=== PATIENT | female | born 1960 ===

== ENCOUNTER 2017-02-01 17:35 | Inpatient (IN) ==
[2017-02-01] MEDS ORDERED: MEROPENEM 1,000 MG in SODIUM CHLORIDE 0.9% 100 ML IV STA (17:53)
[2017-02-01] MEDS ORDERED: SODIUM CHLORIDE 0.9% 1,000 ML IV STA (18:01)
[2017-02-01] MEDS ORDERED: SODIUM CHLORIDE 0.9% 3,550 ML IV ONE (18:27)
[2017-02-01] MEDS ORDERED: VANCOMYCIN INJ 1,750 MG in SODIUM CHLORIDE 0.9% 250 ML IV SCH (18:30)
[2017-02-01] MEDS ORDERED: INSULIN REGULAR DRIP 100 ML IV SCH (18:30)
[2017-02-01] MEDS ORDERED: PIPERACILLIN/TAZOBACTAM 3,375 MG in SODIUM CHLORIDE 0.9% 100 ML IV SCH (18:30)
[2017-02-01] MEDS ORDERED: MEROPENEM 1,000 MG VIAL IV ONE (18:31)
[2017-02-01 18:45] LABS: ABG Base Excess -5.5 MMOL/L (-2.5-2.5); ABG HCO3 19.9 MMOL/L (20-26); ABG Oxygen Saturation 97.1 % (95-100); ABG PCO2 23.8 MM HG (35-48); ABG PH 7.458 (7.35-7.45); ABG PO2 83.9 MM HG (80-95); ABG TCO2 14.9 MMOL/L (23-27); Allen Test Positive; Pt O2 Delivery Device Room Air
[2017-02-01] MEDS ORDERED: GLUCAGON 1 MG VIAL IM PRN ×2 (19:05→19:20)
[2017-02-01] MEDS ORDERED: DEXTROSE 50% 25 GM/50 ML VIAL IV PRN ×2 (19:05→19:20)
[2017-02-01 19:20] LABS: Lactic Acid 3.8 MMOL/L (0.4-2.0)
[2017-02-01] MEDS ORDERED: SODIUM CHLORIDE 0.9% 2,000 ML IV ONE (19:20)
[2017-02-01] MEDS ORDERED: ACETAMINOPHEN 325 MG TABLET PO PRN (19:20)
[2017-02-01] MEDS ORDERED: PROMETHAZINE 25 MG/1 ML VIAL IM PRN (19:20)
[2017-02-01] MEDS ORDERED: ONDANSETRON 4 MG/2 ML VIAL IV PRN (19:20)
[2017-02-01 19:24] LABS: Basophils # 0.1 10*3/uL (0.0-0.2); Basophils % 0.4 % (0.0-0.8); Hemoglobin 12.2 GM/DL (12.0-16.0); Immature Granulocytes % 3.2 %; Lymphocytes # 0.6 10*3/uL (1.4-4.0); Lymphocytes % 2.3 % (21.3-54.2); Mean Corpuscular HGB Conc 33.9 GM/DL (32-36); Mean Corpuscular Hemoglobin 33 PG (27-34); Mean Corpuscular Volume 96.5 FL (87-102); Mean Platelet Volume 10.6 FL (9.6-12.0); Monocytes % 4.1 % (1.7-12.7); Neutrophils # 22.9 10*3/uL (1.4-7.4); Platelet Count 254 T/CUMM (130-400); Red Blood Count 3.73 MC/CUMM (3.8-5.5); Red Cell Distribution Width 13.2 % (9.3-17.3); White Blood Count 25.4 T/CUMM (4-12)
[2017-02-01 20:04] LABS: Total Cells Counted 100
[2017-02-01 20:11] LABS: Band Neutrophils 7 % (0-10); Calcium 8.2 MG/DL (8.5-10.1); Lymphocytes 2 % (20-55); Magnesium 1.6 MG/DL (1.8-2.4); Osmolality,Calculated 283.2 MOS/KG (273-304); Platelet Estimate Normal; Potassium 3.8 MMOL/L (3.5-5.1); Segmented Neutrophils 89 % (50-85)
[2017-02-01 20:12] LABS: Albumin 2.5 G/DL (3.4-5.0); Calcium 7.9 MG/DL (8.5-10.1); Osmolality,Calculated 286.1 MOS/KG (273-304)
[2017-02-01] MEDS ORDERED: PNEUMOCOCCAL VACCINE (23 VALENT) 0.5 ML VIAL IM ONE (20:30)
[2017-02-01] MEDS ORDERED: VANCOMYCIN INJ 1,750 MG in SODIUM CHLORIDE 0.9% 500 ML IV SCH (20:30)
[2017-02-01] MEDS ORDERED: INFLUENZA VIRUS VACCINE 0.5 ML SYRINGE IM ONE (20:32)
[2017-02-01] MEDS ORDERED: INSULIN LISPRO 100 UNIT/ML SUBCUT SCH (21:00)
[2017-02-01 21:03] LABS: Lactic Acid 2.6 MMOL/L (0.4-2.0)
[2017-02-01] MEDS: PIPERACILLIN/TAZOBACTAM 3,375 MG in SODIUM CHLORIDE 0.9% 100 ML IV SCH (21:30)
[2017-02-01] MEDS: INSULIN GLARGINE 100 UNIT/ML SUBCUT SCH (21:31)
[2017-02-01] MEDS: HYDROmorphone 2 MG/1 ML VIAL IV PRN (21:51)
[2017-02-01] MEDS: SODIUM CHLORIDE 0.9% 1,000 ML IV SCH (22:58)
[2017-02-02] MEDS: NOREPINEPHRINE 8 MG in SODIUM CHLORIDE 0.9% 242 ML IV SCH ×4 (01:20→17:06)
[2017-02-02] MEDS: SODIUM CHLORIDE 0.9% 1,000 ML IV SCH ×6 (01:41→22:11)
[2017-02-02] MEDS: INSULIN REGULAR 100 UNIT/ML SUBCUT SCH ×4 (01:43→19:25)
[2017-02-02] MEDS ORDERED: VANCOMYCIN INJ 1,750 MG in SODIUM CHLORIDE 0.9% 500 ML IV ONE (01:59)
[2017-02-02] MEDS: VANCOMYCIN INJ 1,750 MG in SODIUM CHLORIDE 0.9% 500 ML IV SCH (02:37)
[2017-02-02 05:11] LABS: Basophils # 0.2 10*3/uL (0.0-0.2); Basophils % 0.7 % (0.0-0.8); Hematocrit 31.6 VOL% (35.7-47.0); Hemoglobin 10.9 GM/DL (12.0-16.0); Immature Granulocytes % 2.9 %; Immature Granulocytes Absolute 0.83 #; Lymphocytes # 0.8 10*3/uL (1.4-4.0); Mean Corpuscular HGB Conc 34.5 GM/DL (32-36); Mean Corpuscular Hemoglobin 33 PG (27-34); Mean Platelet Volume 10.8 FL (9.6-12.0); Monocytes # 1.7 10*3/uL (0.11-0.8); Neutrophils # 24.7 10*3/uL (1.4-7.4); Neutrophils % 87.4 % (38.7-73.9); Platelet Count 248 T/CUMM (130-400); Red Blood Count 3.29 MC/CUMM (3.8-5.5); Red Cell Distribution Width 13.4 % (9.3-17.3); White Blood Count 28.3 T/CUMM (4-12)
[2017-02-02 05:38] LABS: Band Neutrophils 8 % (0-10); Lymphocytes 1 % (20-55); Myelocytes 1 %; Osmolality,Calculated 289.5 MOS/KG (273-304); Platelet Estimate Normal; Potassium 3.8 MMOL/L (3.5-5.1); Segmented Neutrophils 88 % (50-85); Total Cells Counted 100
[2017-02-02] MEDS: PIPERACILLIN/TAZOBACTAM 3,375 MG in SODIUM CHLORIDE 0.9% 100 ML IV SCH ×3 (05:38→22:22)
[2017-02-02 05:42] LABS: Calcium 7.1 MG/DL (8.5-10.1); Total Protein 5.3 G/DL (6.4-8.3)
[2017-02-02 05:43] LABS: Osmolality,Calculated 289.5 MOS/KG (273-304); Potassium 3.5 MMOL/L (3.5-5.1)
[2017-02-02] MEDS ORDERED: BUPIVACAINE 0.25% 50 ML VIAL ONE (06:23)
[2017-02-02] MEDS ORDERED: PROPOFOL 1,000 MG/100 ML BOTTLE IV ONE (07:56)
[2017-02-02] MEDS: PROPOFOL 1,000 MG/100 ML BOTTLE IV SCH ×3 (08:20→21:11)
[2017-02-02] MEDS ORDERED: PROPOFOL 1,000 MG/100 ML BOTTLE IV SCH (08:32)
[2017-02-02] MEDS ORDERED: PROPOFOL 200 MG/20 ML VIAL IV ONE (08:54)
[2017-02-02] MEDS ORDERED: SEVOFLURANE 1 UNIT/15 MINUTE INH ONE (08:55)
[2017-02-02] MEDS ORDERED: PHENYLEPHRINE DRIP 20 MG/250 ML PREMIX IV ONE (08:55)
[2017-02-02] MEDS ORDERED: MIDAZOLAM 2 MG/2 ML VIAL ONE (08:56)
[2017-02-02] MEDS ORDERED: ESMOLOL 100 MG/10 ML VIAL IV ONE (08:56)
[2017-02-02] MEDS ORDERED: fentaNYL 100 MCG/2 ML VIAL ONE (08:56)
[2017-02-02] MEDS ORDERED: CISATRACURIUM 10 MG/5 ML VIAL IV ONE ×3 (08:57→08:59)
[2017-02-02] MEDS ORDERED: SUCCINYLCHOLINE 200 MG/10 ML VIAL ONE (08:57)
[2017-02-02] MEDS ORDERED: ONDANSETRON 4 MG/2 ML VIAL ONE (08:57)
[2017-02-02] MEDS ORDERED: LACTATED RINGERS 1,000 ML IV ONE (08:57)
[2017-02-02] MEDS ORDERED: hydroCHLOROthiazide 25 MG TABLET PO SCH (09:00)
[2017-02-02] MEDS ORDERED: PANTOPRAZOLE 40 MG TABLET PO SCH (09:00)
[2017-02-02] MEDS ORDERED: LISINOPRIL 20 MG TABLET PO SCH (09:00)
[2017-02-02 09:13] LABS: Basophils # 0.1 10*3/uL (0.0-0.2); Basophils % 0.4 % (0.0-0.8); Hematocrit 33.6 VOL% (35.7-47.0); Hemoglobin 10.9 GM/DL (12.0-16.0); Immature Granulocytes % 4.2 %; Immature Granulocytes Absolute 1.29 #; Lymphocytes # 1.2 10*3/uL (1.4-4.0); Lymphocytes % 3.9 % (21.3-54.2); Mean Corpuscular HGB Conc 32.4 GM/DL (32-36); Mean Corpuscular Hemoglobin 32 PG (27-34); Mean Corpuscular Volume 99.7 FL (87-102); Mean Platelet Volume 10.5 FL (9.6-12.0); Monocytes % 6.5 % (1.7-12.7); Neutrophils # 26.1 10*3/uL (1.4-7.4); Platelet Count 256 T/CUMM (130-400); Red Blood Count 3.37 MC/CUMM (3.8-5.5); Red Cell Distribution Width 13.3 % (9.3-17.3); White Blood Count 30.7 T/CUMM (4-12)
[2017-02-02] MEDS: HYDROmorphone 2 MG/1 ML VIAL IV PRN ×2 (09:25→22:22)
[2017-02-02 09:32] LABS: ABG HCO3 15.1 MMOL/L (20-26); ABG Oxygen Saturation 98.5 % (95-100); ABG PCO2 41.5 MM HG (35-48); ABG TCO2 14.6 MMOL/L (23-27)
[2017-02-02] MEDS ORDERED: ADENOSINE 6 MG/2 ML VIAL ONE (09:32)
[2017-02-02] MEDS ORDERED: ADENOSINE 6 MG/2 ML VIAL IV ONE (09:40)
[2017-02-02 09:47] LABS: Bilirubin,Total 0.9 MG/DL (0.2-1.0); Calcium 7.2 MG/DL (8.5-10.1); Osmolality,Calculated 288.8 MOS/KG (273-304); Potassium 3.7 MMOL/L (3.5-5.1); Total Protein 5.7 G/DL (6.4-8.3)
[2017-02-02 09:52] LABS: ABG PH 7.191 (7.35-7.45)
[2017-02-02] MEDS ORDERED: AMIODARONE INJ 150 MG in DEXTROSE 5% 100 ML IV ONE (11:01)
[2017-02-02 11:22] LABS: Band Neutrophils 7 % (0-10); Lymphocytes 3 % (20-55); Segmented Neutrophils 84 % (50-85); Total Cells Counted 100
[2017-02-02 11:23] LABS: Macrocytosis Slight; Platelet Estimate Normal
[2017-02-02] MEDS ORDERED: AMIODARONE INJ 450 MG in DEXTROSE 5% 241 ML IV SCH (11:30)
[2017-02-02 13:50] LABS: ABG Base Excess -13.2 MMOL/L (-2.5-2.5); ABG HCO3 14.2 MMOL/L (20-26); ABG Oxygen Saturation 94.4 % (95-100); ABG PCO2 33.2 MM HG (35-48); ABG PH 7.223 (7.35-7.45); ABG PO2 82.5 MM HG (80-95); ABG TCO2 12.6 MMOL/L (23-27); Pt O2 Delivery Device Ventilator
[2017-02-02] MEDS ORDERED: FUROSEMIDE 40 MG/4 ML VIAL ONE (15:30)
[2017-02-02] MEDS: MIDAZOLAM 100 MG in SODIUM CHLORIDE 0.9% 80 ML IV SCH (16:31)
[2017-02-02] MEDS: PANTOPRAZOLE 40 MG VIAL IV SCH (17:04)
[2017-02-02] MEDS: ENOXAPARIN 40 MG/0.4 ML SYRINGE SUBCUT SCH (17:07)
[2017-02-02] MEDS: ASPIRIN EC 81 MG TABLET PO SCH (17:07)
[2017-02-02] MEDS ORDERED: PHENYLEPHRINE DRIP 40 MG/250 ML PREMIX IV SCH (18:30)
[2017-02-02] MEDS: NOREPINEPHRINE 16 MG in SODIUM CHLORIDE 0.9% 234 ML IV SCH (20:27)
[2017-02-02] MEDS: AMIODARONE INJ 450 MG in DEXTROSE 5% 241 ML IV SCH (20:45)
[2017-02-02] MEDS ORDERED: SODIUM CHLORIDE 0.9% 1,000 ML IV ONE ×2 (21:03→23:59)
[2017-02-02] MEDS: INSULIN GLARGINE 100 UNIT/ML SUBCUT SCH (22:08)
[2017-02-03] MEDS: INSULIN REGULAR 100 UNIT/ML SUBCUT SCH ×4 (00:20→18:38)
[2017-02-03] MEDS: PROPOFOL 1,000 MG/100 ML BOTTLE IV SCH ×6 (00:20→22:00)
[2017-02-03] MEDS: PHENYLEPHRINE INJ 160 MG in SODIUM CHLORIDE 0.9% 234 ML IV SCH ×2 (01:01→21:13)
[2017-02-03 02:49] LABS: ABG Base Excess -10.4 MMOL/L (-2.5-2.5); ABG HCO3 16.2 MMOL/L (20-26); ABG Oxygen Saturation 99.4 % (95-100); ABG PCO2 29.6 MM HG (35-48); ABG PH 7.307 (7.35-7.45); ABG TCO2 13.5 MMOL/L (23-27); Allen Test Positive; Pt O2 Delivery Device Ventilator
[2017-02-03] MEDS: VANCOMYCIN INJ 1,750 MG in SODIUM CHLORIDE 0.9% 500 ML IV SCH ×2 (03:13→13:24)
[2017-02-03] MEDS: SODIUM CHLORIDE 0.9% 1,000 ML IV SCH ×2 (03:45→06:28)
[2017-02-03 04:46] LABS: Basophils # 0.1 10*3/uL (0.0-0.2); Basophils % 0.6 % (0.0-0.8); Hematocrit 31.5 VOL% (35.7-47.0); Hemoglobin 10.4 GM/DL (12.0-16.0); Immature Granulocytes % 3.2 %; Immature Granulocytes Absolute 0.65 #; Lymphocytes # 1.4 10*3/uL (1.4-4.0); Lymphocytes % 6.8 % (21.3-54.2); Mean Corpuscular Hemoglobin 33 PG (27-34); Mean Corpuscular Volume 98.7 FL (87-102); Monocytes # 1.3 10*3/uL (0.11-0.8); Monocytes % 6.1 % (1.7-12.7); Neutrophils # 17.1 10*3/uL (1.4-7.4); Neutrophils % 83.3 % (38.7-73.9); Platelet Count 248 T/CUMM (130-400); Red Blood Count 3.19 MC/CUMM (3.8-5.5); Red Cell Distribution Width 13.7 % (9.3-17.3); White Blood Count 20.5 T/CUMM (4-12)
[2017-02-03 05:06] LABS: Albumin 1.6 G/DL (3.4-5.0); Bilirubin,Total 1.1 MG/DL (0.2-1.0); Osmolality,Calculated 303.4 MOS/KG (273-304); Potassium 3.9 MMOL/L (3.5-5.1); Total Protein 5.1 G/DL (6.4-8.3)
[2017-02-03] MEDS: AMIODARONE INJ 450 MG in DEXTROSE 5% 241 ML IV SCH ×2 (05:08→11:11)
[2017-02-03 05:39] LABS: Band Neutrophils 4 % (0-10); Lymphocytes 6 % (20-55); Metamyelocytes 2 %; Segmented Neutrophils 84 % (50-85); Tear Drop Cells Slight; Total Cells Counted 100
[2017-02-03 05:40] LABS: Macrocytosis Slight
[2017-02-03 05:55] LABS: Risk Ratio 8.6; VLDL CHOLESTEROL 69.4 MG/DL
[2017-02-03] MEDS: PIPERACILLIN/TAZOBACTAM 3,375 MG in SODIUM CHLORIDE 0.9% 100 ML IV SCH ×3 (06:28→20:35)
[2017-02-03] MEDS ORDERED: SODIUM BICARBONATE 50 MEQ/50 ML SYRINGE IV ONE ×2 (06:59→07:00)
[2017-02-03] MEDS ORDERED: FUROSEMIDE 20 MG/2 ML VIAL IV SCH (09:00)
[2017-02-03] MEDS ORDERED: SODIUM CHLORIDE 0.9% 1,000 ML IV ONE (10:47)
[2017-02-03] MEDS ORDERED: SEVOFLURANE 1 UNIT/15 MINUTE INH ONE (10:47)
[2017-02-03] MEDS ORDERED: ROCURONIUM 100 MG/10 ML VIAL IV ONE (10:47)
[2017-02-03] MEDS ORDERED: PROPOFOL 200 MG/20 ML VIAL IV ONE (10:47)
[2017-02-03] MEDS ORDERED: MIDAZOLAM 2 MG/2 ML VIAL ONE (10:47)
[2017-02-03] MEDS: ASPIRIN EC 81 MG TABLET PO SCH (11:10)
[2017-02-03] MEDS: SODIUM BICARB INJ 50 MEQ in STERILE WATER INJ 1,000 ML IV SCH (11:10)
[2017-02-03] MEDS: PANTOPRAZOLE 40 MG VIAL IV SCH (11:11)
[2017-02-03] MEDS: ENOXAPARIN 40 MG/0.4 ML SYRINGE SUBCUT SCH (13:24)
[2017-02-03] MEDS: MIDAZOLAM 100 MG in SODIUM CHLORIDE 0.9% 80 ML IV SCH (16:28)
[2017-02-03] MEDS: NOREPINEPHRINE 16 MG in SODIUM CHLORIDE 0.9% 234 ML IV SCH (19:25)
[2017-02-03] MEDS: INSULIN GLARGINE 100 UNIT/ML SUBCUT SCH (21:58)
[2017-02-04] MEDS: INSULIN REGULAR 100 UNIT/ML SUBCUT SCH ×4 (00:51→19:18)
[2017-02-04] MEDS: VANCOMYCIN INJ 1,750 MG in SODIUM CHLORIDE 0.9% 500 ML IV SCH ×3 (02:08→20:59)
[2017-02-04] MEDS: PROPOFOL 1,000 MG/100 ML BOTTLE IV SCH ×4 (02:25→20:59)
[2017-02-04 03:26] LABS: ABG Base Excess -3.7 MMOL/L (-2.5-2.5); ABG Oxygen Saturation 98.5 % (95-100); ABG PCO2 27.3 MM HG (35-48); ABG PO2 148.9 MM HG (80-95); ABG TCO2 19.8 MMOL/L (23-27); Pt O2 Delivery Device Ventilator
[2017-02-04] MEDS: PIPERACILLIN/TAZOBACTAM 3,375 MG in SODIUM CHLORIDE 0.9% 100 ML IV SCH ×3 (04:39→22:52)
[2017-02-04 05:15] LABS: Basophils # 0.1 10*3/uL (0.0-0.2); Basophils % 0.4 % (0.0-0.8); Eosinophils % 0.2 % (0.00-10.9); Hematocrit 26.7 VOL% (35.7-47.0); Hemoglobin 8.8 GM/DL (12.0-16.0); Immature Granulocytes % 2.7 %; Immature Granulocytes Absolute 0.32 #; Lymphocytes # 1.7 10*3/uL (1.4-4.0); Lymphocytes % 14.4 % (21.3-54.2); Mean Corpuscular Hemoglobin 33 PG (27-34); Mean Corpuscular Volume 98.5 FL (87-102); Mean Platelet Volume 10.6 FL (9.6-12.0); Monocytes # 0.7 10*3/uL (0.11-0.8); Monocytes % 5.7 % (1.7-12.7); NRBC # 0.03 10*3/uL; Neutrophils # 9.2 10*3/uL (1.4-7.4); Neutrophils % 76.6 % (38.7-73.9); Platelet Count 226 T/CUMM (130-400); Red Blood Count 2.71 MC/CUMM (3.8-5.5); Red Cell Distribution Width 14.2 % (9.3-17.3)
[2017-02-04 05:45] LABS: Lymphocytes 9 % (20-55); Nucleated Red Blood Cells 1 (0-5); Platelet Estimate Adequate; Segmented Neutrophils 86 % (50-85); Total Cells Counted 100
[2017-02-04 05:46] LABS: Giant Platelets Few; Hypochromasia 1+
[2017-02-04 05:52] LABS: Albumin 1.7 G/DL (3.4-5.0); Bilirubin,Total 1.1 MG/DL (0.2-1.0); Calcium 7.2 MG/DL (8.5-10.1); Osmolality,Calculated 297.1 MOS/KG (273-304); Potassium 3.2 MMOL/L (3.5-5.1); Total Protein 5.1 G/DL (6.4-8.3)
[2017-02-04] MEDS: SODIUM BICARB INJ 50 MEQ in STERILE WATER INJ 1,000 ML IV SCH (07:13)
[2017-02-04] MEDS: HYDROmorphone 2 MG/1 ML VIAL IV PRN (07:35)
[2017-02-04 09:50] LABS: ABG Base Excess -3.3 MMOL/L (-2.5-2.5); ABG HCO3 21.6 MMOL/L (20-26); ABG Oxygen Saturation 90.7 % (95-100); ABG PCO2 33.7 MM HG (35-48); ABG PH 7.401 (7.35-7.45); ABG PO2 61.5 MM HG (80-95); ABG TCO2 19.2 MMOL/L (23-27)
[2017-02-04] MEDS: ASPIRIN EC 81 MG TABLET PO SCH (10:22)
[2017-02-04] MEDS: PANTOPRAZOLE 40 MG VIAL IV SCH (10:22)
[2017-02-04] MEDS: FUROSEMIDE 40 MG/4 ML VIAL IV SCH ×2 (10:22→15:42)
[2017-02-04] MEDS: SODIUM HYPOCHLORITE 0.25% IRRIG 473 ML BOTTLE TOP SCH (10:23)
[2017-02-04] MEDS: ENOXAPARIN 40 MG/0.4 ML SYRINGE SUBCUT SCH (14:01)
[2017-02-04] MEDS: MIDAZOLAM 100 MG in SODIUM CHLORIDE 0.9% 80 ML IV SCH (15:29)
[2017-02-04] MEDS: NOREPINEPHRINE 16 MG in SODIUM CHLORIDE 0.9% 234 ML IV SCH (19:32)
[2017-02-04] MEDS: PHENYLEPHRINE INJ 160 MG in SODIUM CHLORIDE 0.9% 234 ML IV SCH (20:57)
[2017-02-04] MEDS: INSULIN GLARGINE 100 UNIT/ML SUBCUT SCH (21:56)
[2017-02-05] MEDS: HYDROmorphone 2 MG/1 ML VIAL IV PRN ×2 (00:51→14:40)
[2017-02-05] MEDS: INSULIN REGULAR 100 UNIT/ML SUBCUT SCH ×4 (01:17→18:33)
[2017-02-05] MEDS: SODIUM BICARB INJ 50 MEQ in STERILE WATER INJ 1,000 ML IV SCH (01:23)
[2017-02-05] MEDS: PROPOFOL 1,000 MG/100 ML BOTTLE IV SCH ×2 (03:35→09:04)
[2017-02-05 04:32] LABS: Basophils % 0.4 % (0.0-0.8); Eosinophils % 0.4 % (0.00-10.9); Hematocrit 25.7 VOL% (35.7-47.0); Hemoglobin 8.5 GM/DL (12.0-16.0); Immature Granulocytes % 4.9 %; Immature Granulocytes Absolute 0.44 #; Lymphocytes # 1.9 10*3/uL (1.4-4.0); Lymphocytes % 20.6 % (21.3-54.2); Mean Corpuscular HGB Conc 33.1 GM/DL (32-36); Mean Corpuscular Hemoglobin 33 PG (27-34); Mean Corpuscular Volume 98.5 FL (87-102); Mean Platelet Volume 9.9 FL (9.6-12.0); Monocytes # 0.6 10*3/uL (0.11-0.8); NRBC # 0.02 10*3/uL; Neutrophils % 66.7 % (38.7-73.9); Platelet Count 215 T/CUMM (130-400); Red Blood Count 2.61 MC/CUMM (3.8-5.5); Red Cell Distribution Width 13.9 % (9.3-17.3)
[2017-02-05 05:03] LABS: Albumin 1.7 G/DL (3.4-5.0); Bilirubin,Total 0.8 MG/DL (0.2-1.0); Calcium 7.3 MG/DL (8.5-10.1); Osmolality,Calculated 300.1 MOS/KG (273-304); Potassium 2.9 MMOL/L (3.5-5.1); Total Protein 5.1 G/DL (6.4-8.3)
[2017-02-05 05:26] LABS: Magnesium 1.8 MG/DL (1.8-2.4); Prealbumin 7.2 MG/DL (20-40)
[2017-02-05 05:36] LABS: Allen Test Positive; Pt O2 Delivery Device Ventilator
[2017-02-05 05:37] LABS: ABG Base Excess 1.6 MMOL/L (-2.5-2.5); ABG HCO3 25.1 MMOL/L (20-26); ABG Oxygen Saturation 96.2 % (95-100); ABG PCO2 35.2 MM HG (35-48); ABG PH 7.471 (7.35-7.45); ABG PO2 84.2 MM HG (80-95); ABG TCO2 26.2 MMOL/L (23-27)
[2017-02-05] MEDS: PIPERACILLIN/TAZOBACTAM 3,375 MG in SODIUM CHLORIDE 0.9% 100 ML IV SCH ×2 (06:25→14:50)
[2017-02-05] MEDS ORDERED: POTASSIUM CHLORIDE RIDER 10 MEQ in PREMIX 1 EACH IV PRN (07:06)
[2017-02-05] MEDS ORDERED: PNEUMOCOCCAL VACCINE (23 VALENT) 0.5 ML VIAL IM ONE (09:00)
[2017-02-05] MEDS ORDERED: INFLUENZA VIRUS VACCINE 0.5 ML SYRINGE IM ONE (09:00)
[2017-02-05] MEDS: FUROSEMIDE 40 MG/4 ML VIAL IV SCH ×2 (09:27→16:27)
[2017-02-05] MEDS: ASPIRIN EC 81 MG TABLET PO SCH (09:27)
[2017-02-05] MEDS: PANTOPRAZOLE 40 MG VIAL IV SCH (09:29)
[2017-02-05] MEDS: SODIUM HYPOCHLORITE 0.25% IRRIG 473 ML BOTTLE TOP SCH (09:34)
[2017-02-05] MEDS: POTASSIUM CHLORIDE RIDER 20 MEQ in PREMIX 1 EACH IV PRN ×3 (10:49→14:51)
[2017-02-05] MEDS: ENOXAPARIN 40 MG/0.4 ML SYRINGE SUBCUT SCH (13:54)
[2017-02-05] MEDS: VANCOMYCIN INJ 1,750 MG in SODIUM CHLORIDE 0.9% 500 ML IV SCH (14:47)
[2017-02-05] MEDS: MIDAZOLAM 100 MG in SODIUM CHLORIDE 0.9% 80 ML IV SCH (18:14)
[2017-02-05] MEDS: ROSUVASTATIN 10 MG TABLET PO SCH (20:22)
[2017-02-05] MEDS: INSULIN GLARGINE 100 UNIT/ML SUBCUT SCH (20:23)
[2017-02-05] MEDS: METOPROLOL TARTRATE 25 MG TABLET PO SCH (20:24)
[2017-02-06] MEDS: INSULIN REGULAR 100 UNIT/ML SUBCUT SCH ×5 (01:20→23:36)
[2017-02-06 03:56] LABS: ABG Base Excess 8.8 MMOL/L (-2.5-2.5); ABG HCO3 31.8 MMOL/L (20-26); ABG Oxygen Saturation 91.5 % (95-100); ABG PCO2 37.3 MM HG (35-48); ABG PH 7.548 (7.35-7.45); ABG PO2 56.7 MM HG (80-95); ABG TCO2 32.9 MMOL/L (23-27); Allen Test Positive; Pt O2 Delivery Device Venturi Mask
[2017-02-06 04:50] LABS: Basophils % 0.4 % (0.0-0.8); Eosinophils # 0.1 10*3/uL (0.0-0.87); Eosinophils % 1.2 % (0.00-10.9); Hemoglobin 9.1 GM/DL (12.0-16.0); Immature Granulocytes % 8.9 %; Immature Granulocytes Absolute 0.84 #; Lymphocytes # 1.9 10*3/uL (1.4-4.0); Lymphocytes % 20.3 % (21.3-54.2); Mean Corpuscular HGB Conc 33.7 GM/DL (32-36); Mean Corpuscular Hemoglobin 33 PG (27-34); Mean Corpuscular Volume 97.5 FL (87-102); Mean Platelet Volume 9.8 FL (9.6-12.0); Monocytes # 0.8 10*3/uL (0.11-0.8); Monocytes % 8.5 % (1.7-12.7); NRBC # 0.13 10*3/uL; Neutrophils # 5.7 10*3/uL (1.4-7.4); Neutrophils % 60.7 % (38.7-73.9); Platelet Count 239 T/CUMM (130-400); Red Blood Count 2.77 MC/CUMM (3.8-5.5); White Blood Count 9.4 T/CUMM (4-12)
[2017-02-06 05:41] LABS: Calcium 7.7 MG/DL (8.5-10.1); Magnesium 1.8 MG/DL (1.8-2.4); Osmolality,Calculated 302.1 MOS/KG (273-304); Potassium 2.9 MMOL/L (3.5-5.1)
[2017-02-06] MEDS: NOREPINEPHRINE 16 MG in SODIUM CHLORIDE 0.9% 234 ML IV SCH (05:53)
[2017-02-06] MEDS: PHENYLEPHRINE INJ 160 MG in SODIUM CHLORIDE 0.9% 234 ML IV SCH (05:53)
[2017-02-06] MEDS: PIPERACILLIN/TAZOBACTAM 3,375 MG in SODIUM CHLORIDE 0.9% 100 ML IV SCH ×4 (05:55→21:35)
[2017-02-06 05:56] LABS: Lymphocytes 20 % (20-55); Metamyelocytes 1 %; Myelocytes 1 %; Promyelocytes 1 %; Segmented Neutrophils 70 % (50-85); Total Cells Counted 100
[2017-02-06 05:57] LABS: Hypochromasia 1+; Platelet Estimate Normal
[2017-02-06] MEDS: ASPIRIN EC 81 MG TABLET PO SCH (08:02)
[2017-02-06] MEDS: VANCOMYCIN INJ 1,750 MG in SODIUM CHLORIDE 0.9% 500 ML IV SCH (08:04)
[2017-02-06] MEDS: FUROSEMIDE 40 MG/4 ML VIAL IV SCH (08:04)
[2017-02-06] MEDS: POTASSIUM CHLORIDE RIDER 20 MEQ in PREMIX 1 EACH IV PRN (08:05)
[2017-02-06] MEDS: PANTOPRAZOLE 40 MG VIAL IV SCH (08:08)
[2017-02-06] MEDS: METOPROLOL TARTRATE 25 MG TABLET PO SCH ×2 (08:12→21:54)
[2017-02-06] MEDS: POTASSIUM CHLORIDE 20 MEQ PACK PO SCH ×2 (11:01→21:36)
[2017-02-06] MEDS: ENOXAPARIN 40 MG/0.4 ML SYRINGE SUBCUT SCH (11:40)
[2017-02-06] MEDS: POTASSIUM CHLORIDE 20 MEQ/15 ML UDCUP PER TUBE PRN ×3 (14:11→18:05)
[2017-02-06] MEDS: FUROSEMIDE 40 MG TABLET PO SCH (16:05)
[2017-02-06] MEDS: HYDROmorphone 2 MG/1 ML VIAL IV PRN ×2 (17:11→23:42)
[2017-02-06] MEDS: SODIUM HYPOCHLORITE 0.25% IRRIG 473 ML BOTTLE TOP SCH (18:15)
[2017-02-06] MEDS: INSULIN GLARGINE 100 UNIT/ML SUBCUT SCH (21:35)
[2017-02-06] MEDS: ROSUVASTATIN 10 MG TABLET PO SCH (21:36)
[2017-02-07] MEDS: VANCOMYCIN INJ 1,750 MG in SODIUM CHLORIDE 0.9% 500 ML IV SCH ×2 (02:03→22:55)
[2017-02-07 02:25] LABS: Osmolality,Calculated 301.3 MOS/KG (273-304); Potassium 3.7 MMOL/L (3.5-5.1)
[2017-02-07] MEDS: PIPERACILLIN/TAZOBACTAM 3,375 MG in SODIUM CHLORIDE 0.9% 100 ML IV SCH ×3 (05:15→16:07)
[2017-02-07] MEDS: INSULIN REGULAR 100 UNIT/ML SUBCUT SCH ×4 (05:15→22:33)
[2017-02-07] MEDS: POTASSIUM CHLORIDE 20 MEQ PACK PO SCH ×2 (08:26→22:32)
[2017-02-07] MEDS: ASPIRIN EC 81 MG TABLET PO SCH (08:26)
[2017-02-07] MEDS: FUROSEMIDE 40 MG TABLET PO SCH ×2 (08:26→16:07)
[2017-02-07] MEDS: METOPROLOL TARTRATE 25 MG TABLET PO SCH ×2 (08:32→22:13)
[2017-02-07] MEDS: PANTOPRAZOLE 40 MG VIAL IV SCH (08:43)
[2017-02-07] MEDS: SODIUM HYPOCHLORITE 0.25% IRRIG 473 ML BOTTLE TOP SCH (12:32)
[2017-02-07] MEDS: ENOXAPARIN 40 MG/0.4 ML SYRINGE SUBCUT SCH (12:51)
[2017-02-07] MEDS: ROSUVASTATIN 10 MG TABLET PO SCH (22:33)
[2017-02-07] MEDS: INSULIN GLARGINE 100 UNIT/ML SUBCUT SCH (22:33)
[2017-02-08] MEDS: PIPERACILLIN/TAZOBACTAM 3,375 MG in SODIUM CHLORIDE 0.9% 100 ML IV SCH ×3 (01:10→17:08)
[2017-02-08] MEDS: FUROSEMIDE 40 MG TABLET PO SCH ×2 (09:02→16:56)
[2017-02-08] MEDS: ASPIRIN EC 81 MG TABLET PO SCH (09:02)
[2017-02-08] MEDS: POTASSIUM CHLORIDE 20 MEQ PACK PO SCH ×2 (09:02→21:57)
[2017-02-08] MEDS: INSULIN REGULAR 100 UNIT/ML SUBCUT SCH ×4 (09:06→22:03)
[2017-02-08] MEDS: METOPROLOL TARTRATE 25 MG TABLET PO SCH ×2 (09:06→22:04)
[2017-02-08] MEDS: PANTOPRAZOLE 40 MG VIAL IV SCH (09:07)
[2017-02-08] MEDS: SODIUM HYPOCHLORITE 0.25% IRRIG 473 ML BOTTLE TOP SCH (11:42)
[2017-02-08] MEDS: ENOXAPARIN 40 MG/0.4 ML SYRINGE SUBCUT SCH (12:27)
[2017-02-08] MEDS: VANCOMYCIN INJ 1,750 MG in SODIUM CHLORIDE 0.9% 500 ML IV SCH (14:41)
[2017-02-08] MEDS: ROSUVASTATIN 10 MG TABLET PO SCH (21:56)
[2017-02-08] MEDS: INSULIN GLARGINE 100 UNIT/ML SUBCUT SCH (22:03)
[2017-02-09] MEDS: PIPERACILLIN/TAZOBACTAM 3,375 MG in SODIUM CHLORIDE 0.9% 100 ML IV SCH ×3 (01:04→16:22)
[2017-02-09 06:25] LABS: Basophils # 0.1 10*3/uL (0.0-0.2); Basophils % 0.6 % (0.0-0.8); Eosinophils # 0.3 10*3/uL (0.0-0.87); Eosinophils % 2.3 % (0.00-10.9); Hematocrit 30.6 VOL% (35.7-47.0); Hemoglobin 10.1 GM/DL (12.0-16.0); Immature Granulocytes % 6.2 %; Immature Granulocytes Absolute 0.79 #; Lymphocytes # 2.2 10*3/uL (1.4-4.0); Mean Corpuscular Hemoglobin 32 PG (27-34); Mean Corpuscular Volume 97.5 FL (87-102); Mean Platelet Volume 9.7 FL (9.6-12.0); Monocytes % 7.5 % (1.7-12.7); NRBC # 0.02 10*3/uL; Neutrophils # 8.4 10*3/uL (1.4-7.4); Neutrophils % 66.4 % (38.7-73.9); Platelet Count 327 T/CUMM (130-400); Red Blood Count 3.14 MC/CUMM (3.8-5.5); Red Cell Distribution Width 13.5 % (9.3-17.3); White Blood Count 12.7 T/CUMM (4-12)
[2017-02-09 06:50] LABS: Eosinophils 2 % (0-10); Hypochromasia 1+; Lymphocytes 20 % (20-55); Microcytosis 1+; Platelet Estimate Adequate; Segmented Neutrophils 66 % (50-85); Total Cells Counted 100
[2017-02-09 06:58] LABS: Calcium 7.6 MG/DL (8.5-10.1); Calcium 7.7 MG/DL (8.5-10.1); Magnesium 2.2 MG/DL (1.8-2.4); Osmolality,Calculated 295.7 MOS/KG (273-304); Osmolality,Calculated 297.6 MOS/KG (273-304); Potassium 3.5 MMOL/L (3.5-5.1)
[2017-02-09] MEDS: INSULIN REGULAR 100 UNIT/ML SUBCUT SCH ×4 (08:25→21:07)
[2017-02-09] MEDS: VANCOMYCIN INJ 1,750 MG in SODIUM CHLORIDE 0.9% 500 ML IV SCH (08:26)
[2017-02-09] MEDS: ASPIRIN EC 81 MG TABLET PO SCH (08:26)
[2017-02-09] MEDS: ENOXAPARIN 40 MG/0.4 ML SYRINGE SUBCUT SCH (08:26)
[2017-02-09] MEDS: SODIUM HYPOCHLORITE 0.25% IRRIG 473 ML BOTTLE TOP SCH (08:27)
[2017-02-09] MEDS: FUROSEMIDE 40 MG TABLET PO SCH ×2 (08:27→16:22)
[2017-02-09] MEDS: PANTOPRAZOLE 40 MG VIAL IV SCH (08:27)
[2017-02-09] MEDS: METOPROLOL TARTRATE 25 MG TABLET PO SCH ×2 (08:27→21:07)
[2017-02-09] MEDS: POTASSIUM CHLORIDE 20 MEQ PACK PO SCH ×2 (08:27→21:07)
[2017-02-09] MEDS: ROSUVASTATIN 10 MG TABLET PO SCH (21:03)
[2017-02-09] MEDS: INSULIN GLARGINE 100 UNIT/ML SUBCUT SCH (21:08)
[2017-02-10] MEDS: VANCOMYCIN INJ 1,750 MG in SODIUM CHLORIDE 0.9% 500 ML IV SCH ×2 (01:40→21:34)
[2017-02-10] MEDS: PIPERACILLIN/TAZOBACTAM 3,375 MG in SODIUM CHLORIDE 0.9% 100 ML IV SCH ×2 (05:02→13:16)
[2017-02-10 06:42] LABS: Basophils # 0.1 10*3/uL (0.0-0.2); Basophils % 0.4 % (0.0-0.8); Eosinophils # 0.4 10*3/uL (0.0-0.87); Eosinophils % 2.9 % (0.00-10.9); Hemoglobin 9.6 GM/DL (12.0-16.0); Immature Granulocytes % 5.3 %; Immature Granulocytes Absolute 0.72 #; Lymphocytes # 2.5 10*3/uL (1.4-4.0); Lymphocytes % 18.1 % (21.3-54.2); Mean Corpuscular HGB Conc 33.1 GM/DL (32-36); Mean Corpuscular Hemoglobin 33 PG (27-34); Mean Corpuscular Volume 99.3 FL (87-102); Monocytes # 0.9 10*3/uL (0.11-0.8); Monocytes % 6.8 % (1.7-12.7); NRBC # 0.02 10*3/uL; Neutrophils # 9.1 10*3/uL (1.4-7.4); Neutrophils % 66.5 % (38.7-73.9); Platelet Count 355 T/CUMM (130-400); Red Blood Count 2.92 MC/CUMM (3.8-5.5); Red Cell Distribution Width 13.9 % (9.3-17.3); White Blood Count 13.6 T/CUMM (4-12)
[2017-02-10] MEDS ORDERED: CLINDAMYCIN INJ 900 MG in PREMIX 1 EACH IV ONE (07:00)
[2017-02-10 07:12] LABS: Eosinophils 8 % (0-10); Hypochromasia 1+; Lymphocytes 13 % (20-55); Macrocytosis Slight; Metamyelocytes 1 %; Segmented Neutrophils 70 % (50-85); Total Cells Counted 100
[2017-02-10 07:13] LABS: Platelet Estimate Normal
[2017-02-10 07:15] LABS: Calcium 7.5 MG/DL (8.5-10.1); Osmolality,Calculated 294.3 MOS/KG (273-304); Potassium 3.6 MMOL/L (3.5-5.1)
[2017-02-10] MEDS: FUROSEMIDE 40 MG TABLET PO SCH ×2 (07:21→15:53)
[2017-02-10] MEDS: INSULIN REGULAR 100 UNIT/ML SUBCUT SCH ×3 (07:21→15:53)
[2017-02-10] MEDS: SODIUM HYPOCHLORITE 0.25% IRRIG 473 ML BOTTLE TOP SCH (08:36)
[2017-02-10] MEDS: ASPIRIN EC 81 MG TABLET PO SCH (08:36)
[2017-02-10] MEDS: PANTOPRAZOLE 40 MG VIAL IV SCH (08:36)
[2017-02-10] MEDS: METOPROLOL TARTRATE 25 MG TABLET PO SCH (08:36)
[2017-02-10] MEDS: POTASSIUM CHLORIDE 20 MEQ PACK PO SCH ×2 (08:36→23:55)
[2017-02-10] MEDS: ENOXAPARIN 40 MG/0.4 ML SYRINGE SUBCUT SCH (08:36)
[2017-02-10] MEDS ORDERED: MIDAZOLAM 2 MG/2 ML VIAL ONE (09:26)
[2017-02-10] MEDS ORDERED: fentaNYL 100 MCG/2 ML VIAL ONE (09:26)
[2017-02-10] MEDS ORDERED: SEVOFLURANE 1 UNIT/15 MINUTE INH ONE (09:26)
[2017-02-10] MEDS ORDERED: ONDANSETRON 4 MG/2 ML VIAL ONE (09:26)
[2017-02-10] MEDS ORDERED: PROPOFOL 200 MG/20 ML VIAL IV ONE (09:26)
[2017-02-10] MEDS ORDERED: SUCCINYLCHOLINE 200 MG/10 ML VIAL ONE (09:41)
[2017-02-10] MEDS: ROSUVASTATIN 10 MG TABLET PO SCH (23:57)
[2017-02-11] MEDS: INSULIN REGULAR 100 UNIT/ML SUBCUT SCH ×4 (00:01→17:35)
[2017-02-11] MEDS: INSULIN GLARGINE 100 UNIT/ML SUBCUT SCH (00:02)
[2017-02-11] MEDS: PIPERACILLIN/TAZOBACTAM 3,375 MG in SODIUM CHLORIDE 0.9% 100 ML IV SCH ×2 (00:15→05:14)
[2017-02-11] MEDS: METOPROLOL TARTRATE 25 MG TABLET PO SCH ×2 (00:17→10:25)
[2017-02-11 06:41] LABS: Basophils # 0.1 10*3/uL (0.0-0.2); Basophils % 0.4 % (0.0-0.8); Eosinophils # 0.3 10*3/uL (0.0-0.87); Eosinophils % 2.6 % (0.00-10.9); Hematocrit 28.3 VOL% (35.7-47.0); Hemoglobin 9.2 GM/DL (12.0-16.0); Immature Granulocytes % 2.6 %; Immature Granulocytes Absolute 0.33 #; Lymphocytes # 1.9 10*3/uL (1.4-4.0); Lymphocytes % 15.2 % (21.3-54.2); Mean Corpuscular HGB Conc 32.5 GM/DL (32-36); Mean Corpuscular Hemoglobin 32 PG (27-34); Mean Corpuscular Volume 99.6 FL (87-102); Mean Platelet Volume 9.7 FL (9.6-12.0); Monocytes # 0.9 10*3/uL (0.11-0.8); Monocytes % 7.2 % (1.7-12.7); Platelet Count 365 T/CUMM (130-400); Red Blood Count 2.84 MC/CUMM (3.8-5.5); White Blood Count 12.5 T/CUMM (4-12)
[2017-02-11] MEDS: FUROSEMIDE 40 MG TABLET PO SCH ×2 (10:25→15:46)
[2017-02-11] MEDS: ASPIRIN EC 81 MG TABLET PO SCH (10:25)
[2017-02-11] MEDS: ENOXAPARIN 40 MG/0.4 ML SYRINGE SUBCUT SCH (10:26)
[2017-02-11] MEDS: PANTOPRAZOLE 40 MG VIAL IV SCH (10:26)
[2017-02-11] MEDS: POTASSIUM CHLORIDE 20 MEQ PACK PO SCH (10:26)
[2017-02-11] MEDS: SODIUM HYPOCHLORITE 0.25% IRRIG 473 ML BOTTLE TOP SCH (10:27)
[2017-02-11 12:21] VITALS: BP 94/53
[2017-02-11 12:48] LABS: Apearance,Urine CLEAR (Clear); Bacteria,Urine Occasional /HPF (Few); Bilirubin,Urine Negative (Negative); Blood, Urine Negative (Negative); Glucose,Urine (UA) 50 mg/dL (Negative); Ketones,Urine Negative (Negative); Nitrite,Urine Negative (Negative); Protein,Urine Negative; RBC,Urine <1 /HPF (0-4); Squamous Epithelial Cell,Urine Occasional /HPF (0-10); Urine Color Straw (Yellow); Urine Specific Gravity 1.006 (1.001-1.035); Urine Urobilinogen < 2.0 EU/DL (0.2-1.0); WBC,Urine <1 /HPF (0-6)
== END 2017-02-11 17:00 | disposition home or self-care (01) | DRG 853 ==
LOC: EDUNIT# → EDBD → N.ED 17:35 → N.EDINP 18:17 → SUATTDRO 18:17 → N.CC 19:11 → N.2E 02-07 14:22
PROVIDERS: ADMIT Surgery; ATTEND Internal Medicine

== ENCOUNTER 2018-08-10 00:04 | Inpatient (IN) ==
[2018-08-10] MEDS ORDERED: HYDROmorphone 2 MG/1 ML VIAL IV STA (00:36)
[2018-08-10] MEDS ORDERED: DIPH/TET/ACEL PERT BOOSTER VACCINE 0.5 ML VIAL IM ONE (00:36)
[2018-08-10] MEDS ORDERED: ONDANSETRON 4 MG/2 ML VIAL IV STA (00:36)
[2018-08-10 00:52] LABS: Basophils # 0.1 10*3/uL (0.0-0.2); Basophils % 0.4 % (0.0-0.8); Eosinophils # 0.1 10*3/uL (0.0-0.87); Eosinophils % 0.6 % (0.00-10.9); Hematocrit 39.6 VOL% (35.7-47.0); Hemoglobin 12.7 GM/DL (12.0-16.0); Immature Granulocytes % 1.6 %; Immature Granulocytes Absolute 0.19 #; Lymphocytes # 1.4 10*3/uL (1.4-4.0); Mean Corpuscular HGB Conc 32.1 GM/DL (32-36); Mean Corpuscular Volume 97.8 FL (87-102); Monocytes % 6.9 % (1.7-12.7); Neutrophils % 78.5 % (38.7-73.9); Platelet Count 178 T/CUMM (130-400); Red Blood Count 4.05 MC/CUMM (3.8-5.5); Red Cell Distribution Width 13.2 % (9.3-17.3); White Blood Count 11.9 T/CUMM (4-12)
[2018-08-10 00:59] LABS: INR 0.9; PT Patient Result 10.2 SECS
[2018-08-10 01:09] LABS: Alanine Aminotransferase 17 U/L (13-56); Albumin 3.1 G/DL (3.4-5.0); Alkaline Phosphatase 135 U/L (45-117); Aspartate Amino Transferase 13 U/L (0-37); Blood Urea Nitrogen 18 MG/DL (7-18); Calcium 8.8 MG/DL (8.5-10.1); Glucose 466 MG/DL (74-106); Osmolality,Calculated 298.5 MOS/KG (273-304); Total Protein 7.4 G/DL (6.4-8.3)
[2018-08-10] MEDS ORDERED: INSULIN REGULAR 100 UNIT/ML SUBCUT STA (01:12)
[2018-08-10] MEDS ORDERED: ceFAZolin 1,000 MG VIAL IV ONE (01:54)
[2018-08-10 01:59] LABS: Apearance,Urine CLEAR (Clear); Bacteria,Urine Occasional /HPF (Few); Bilirubin,Urine Negative (Negative); Blood, Urine Small mg/dL (Negative); Glucose,Urine (UA) >=500 mg/dL (Negative); Ketones,Urine 5 mg/dL (Negative); Nitrite,Urine Positive (Negative); Protein,Urine Negative; RBC,Urine 4 /HPF (0-4); Urine Color Yellow (Yellow); Urine Specific Gravity 1.029 (1.001-1.035); Urine Urobilinogen < 2.0 EU/DL (0.2-1.0); WBC,Urine 12 /HPF (0-6)
[2018-08-10 02:03] LABS: Barbiturates Screen,Urine Negative (Negative); Benzodiazepines Screen,Urine Negative (Negative); Cannabinoid Screen,Urine Negative (Negative); Opiate Screen,Urine Positive (Negative); Phencyclidine Screen,Urine Negative (Negative)
[2018-08-10] MEDS ORDERED: DEXTROSE 50% 25 GM/50 ML VIAL IV PRN (03:17)
[2018-08-10] MEDS ORDERED: MAGNESIUM HYDROXIDE SUSP 30 ML UDCUP PO PRN (03:17)
[2018-08-10] MEDS ORDERED: GLUCAGON 1 MG VIAL IM PRN (03:17)
[2018-08-10] MEDS: SODIUM CHLORIDE 0.9% 1,000 ML IV SCH ×3 (03:31→21:15)
[2018-08-10] MEDS: INSULIN REGULAR 100 UNIT/ML SUBCUT SCH ×4 (05:25→21:14)
[2018-08-10] MEDS ORDERED: VANCOMYCIN INJ 1,000 MG in SODIUM CHLORIDE 0.9% 250 ML IV ONE (06:00)
[2018-08-10] MEDS ORDERED: INSULIN REGULAR 100 UNIT/ML SUBCUT ONE (06:28)
[2018-08-10] MEDS ORDERED: LACTULOSE 20 GM/30 ML UDCUP PO PRN (07:28)
[2018-08-10] MEDS ORDERED: BISACODYL 10 MG SUPP RECTAL PRN (07:28)
[2018-08-10] MEDS ORDERED: ONDANSETRON 4 MG/2 ML VIAL IV PRN ×2 (07:28→09:29)
[2018-08-10] MEDS ORDERED: PROMETHAZINE 25 MG/1 ML VIAL IM PRN (07:28)
[2018-08-10] MEDS ORDERED: diphenhydrAMINE CAP 25 MG CAPSULE PO PRN (07:28)
[2018-08-10] MEDS ORDERED: MORPHINE 4 MG/1 ML VIAL IV PRN (07:28)
[2018-08-10] MEDS ORDERED: VANCOMYCIN 1,000 MG VIAL ONE (07:35)
[2018-08-10] MEDS ORDERED: ceFAZolin 1,000 MG VIAL ONE (08:53)
[2018-08-10] MEDS ORDERED: PROPOFOL 200 MG/20 ML VIAL IV ONE (09:17)
[2018-08-10] MEDS ORDERED: SEVOFLURANE 1 UNIT/15 MINUTE INH ONE (09:17)
[2018-08-10] MEDS ORDERED: PHENYLEPHRINE DRIP 20 MG/250 ML PREMIX IV ONE (09:17)
[2018-08-10] MEDS ORDERED: fentaNYL 100 MCG/2 ML VIAL ONE (09:18)
[2018-08-10] MEDS ORDERED: GLYCOPYRROLATE 0.4 MG/2 ML VIAL ONE (09:18)
[2018-08-10] MEDS ORDERED: KETOROLAC 30 MG/1 ML VIAL ONE (09:18)
[2018-08-10] MEDS ORDERED: MIDAZOLAM 2 MG/2 ML VIAL ONE (09:18)
[2018-08-10] MEDS ORDERED: PHENYLEPHRINE 1 MG/10 ML SYRINGE IV ONE (09:18)
[2018-08-10] MEDS ORDERED: ONDANSETRON 4 MG/2 ML VIAL ONE ×2 (09:18→09:31)
[2018-08-10] MEDS ORDERED: SODIUM CHLORIDE 0.9% 250 ML IV ONE (09:19)
[2018-08-10] MEDS ORDERED: ROCURONIUM 100 MG/10 ML VIAL IV ONE (09:19)
[2018-08-10] MEDS ORDERED: NEOSTIGMINE 10 MG/10 ML VIAL ONE (09:19)
[2018-08-10] MEDS: HYDROmorphone 2 MG/1 ML VIAL IV PRN ×5 (09:30→18:04)
[2018-08-10] MEDS ORDERED: HYDROmorphone 2 MG/1 ML VIAL ONE (09:30)
[2018-08-10] MEDS: LISINOPRIL 10 MG TABLET PO SCH (13:00)
[2018-08-10] MEDS ORDERED: ceFAZolin 1,000 MG in SYRINGE 1 EACH IV SCH (14:00)
[2018-08-10] MEDS: ceFAZolin 1,000 MG in SYRINGE 1 EACH IV SCH (16:30)
[2018-08-10] MEDS ORDERED: INSULIN GLARGINE 100 UNIT/ML SUBCUT SCH (21:00)
[2018-08-10] MEDS: MORPHINE 4 MG/1 ML VIAL IV PRN (21:13)
[2018-08-10] MEDS: SIMVASTATIN 10 MG TABLET PO SCH (21:14)
[2018-08-11] MEDS: ceFAZolin 1,000 MG in SYRINGE 1 EACH IV SCH ×4 (00:33→23:59)
[2018-08-11] MEDS: SODIUM CHLORIDE 0.9% 1,000 ML IV SCH ×2 (00:35→06:56)
[2018-08-11] MEDS: MORPHINE 4 MG/1 ML VIAL IV PRN (00:36)
[2018-08-11] MEDS: HYDROmorphone 2 MG/1 ML VIAL IV PRN ×6 (03:22→23:55)
[2018-08-11] MEDS: INSULIN REGULAR 100 UNIT/ML SUBCUT SCH ×4 (03:58→20:32)
[2018-08-11 05:41] LABS: Basophils % 0.3 % (0.0-0.8); Eosinophils # 0.1 10*3/uL (0.0-0.87); Eosinophils % 1.3 % (0.00-10.9); Hematocrit 28.5 VOL% (35.7-47.0); Hemoglobin 8.9 GM/DL (12.0-16.0); Immature Granulocytes Absolute 0.11 #; Lymphocytes # 1.6 10*3/uL (1.4-4.0); Lymphocytes % 14.7 % (21.3-54.2); Mean Corpuscular HGB Conc 31.2 GM/DL (32-36); Mean Corpuscular Volume 101.8 FL (87-102); Monocytes % 9.6 % (1.7-12.7); Neutrophils % 73.1 % (38.7-73.9); Platelet Count 156 T/CUMM (130-400); Red Cell Distribution Width 13.2 % (9.3-17.3); White Blood Count 11.1 T/CUMM (4-12)
[2018-08-11] MEDS: LISINOPRIL 10 MG TABLET PO SCH (08:43)
[2018-08-11] MEDS: INSULIN GLARGINE 100 UNIT/ML SUBCUT SCH (20:32)
[2018-08-11] MEDS: SIMVASTATIN 10 MG TABLET PO SCH (20:32)
[2018-08-12 06:26] LABS: Basophils % 0.4 % (0.0-0.8); Eosinophils # 0.1 10*3/uL (0.0-0.87); Eosinophils % 0.7 % (0.00-10.9); Hematocrit 27.1 VOL% (35.7-47.0); Hemoglobin 8.6 GM/DL (12.0-16.0); Immature Granulocytes % 1.1 %; Immature Granulocytes Absolute 0.12 #; Lymphocytes % 18.5 % (21.3-54.2); Mean Corpuscular HGB Conc 31.7 GM/DL (32-36); Mean Corpuscular Volume 100.7 FL (87-102); Mean Platelet Volume 10.4 FL (9.6-12.0); Monocytes % 9.9 % (1.7-12.7); Neutrophils % 69.4 % (38.7-73.9); Platelet Count 168 T/CUMM (130-400); Red Blood Count 2.69 MC/CUMM (3.8-5.5); Red Cell Distribution Width 12.9 % (9.3-17.3); White Blood Count 10.7 T/CUMM (4-12)
[2018-08-12] MEDS: ceFAZolin 1,000 MG in SYRINGE 1 EACH IV SCH ×3 (08:27→23:22)
[2018-08-12] MEDS: INSULIN REGULAR 100 UNIT/ML SUBCUT SCH ×4 (08:27→20:53)
[2018-08-12] MEDS: LISINOPRIL 10 MG TABLET PO SCH (08:28)
[2018-08-12] MEDS: HYDROmorphone 2 MG/1 ML VIAL IV PRN (11:09)
[2018-08-12] MEDS: INSULIN GLARGINE 100 UNIT/ML SUBCUT SCH (20:53)
[2018-08-12] MEDS: SIMVASTATIN 10 MG TABLET PO SCH (20:54)
[2018-08-13 05:20] LABS: Basophils % 0.2 % (0.0-0.8); Eosinophils # 0.1 10*3/uL (0.0-0.87); Eosinophils % 1.3 % (0.00-10.9); Hematocrit 26.1 VOL% (35.7-47.0); Hemoglobin 8.5 GM/DL (12.0-16.0); Immature Granulocytes % 1.2 %; Immature Granulocytes Absolute 0.11 #; Lymphocytes # 1.8 10*3/uL (1.4-4.0); Lymphocytes % 20.1 % (21.3-54.2); Mean Corpuscular HGB Conc 32.6 GM/DL (32-36); Mean Corpuscular Volume 98.1 FL (87-102); Mean Platelet Volume 10.2 FL (9.6-12.0); Monocytes % 10.2 % (1.7-12.7); Platelet Count 184 T/CUMM (130-400); Red Blood Count 2.66 MC/CUMM (3.8-5.5); Red Cell Distribution Width 13.1 % (9.3-17.3); White Blood Count 8.9 T/CUMM (4-12)
[2018-08-13 05:56] LABS: Calcium 8.1 MG/DL (8.5-10.1); Osmolality,Calculated 285.1 MOS/KG (273-304)
[2018-08-13] MEDS: MAGNESIUM HYDROXIDE SUSP 30 ML UDCUP PO PRN (08:49)
[2018-08-13] MEDS: INSULIN REGULAR 100 UNIT/ML SUBCUT SCH ×4 (08:50→21:43)
[2018-08-13] MEDS: LISINOPRIL 10 MG TABLET PO SCH (08:50)
[2018-08-13] MEDS: sitaGLIPtin 100 MG TABLET PO SCH (08:50)
[2018-08-13] MEDS: cefTRIAXone 1,000 MG in SYRINGE 1 EACH IV SCH (08:50)
[2018-08-13] MEDS: INSULIN GLARGINE 100 UNIT/ML SUBCUT SCH (21:42)
[2018-08-13] MEDS: SIMVASTATIN 10 MG TABLET PO SCH (21:42)
[2018-08-14] MEDS: cefTRIAXone 1,000 MG in SYRINGE 1 EACH IV SCH (09:25)
[2018-08-14] MEDS: KETOROLAC 30 MG/1 ML VIAL IV SCH ×3 (09:25→21:03)
[2018-08-14] MEDS: sitaGLIPtin 100 MG TABLET PO SCH (09:29)
[2018-08-14] MEDS: LISINOPRIL 10 MG TABLET PO SCH (09:29)
[2018-08-14] MEDS: INSULIN REGULAR 100 UNIT/ML SUBCUT SCH ×4 (09:34→21:04)
[2018-08-14] MEDS: oxyCODONE/ACETAMINOPHEN 5-325 MG TABLET PO PRN ×2 (11:46→18:24)
[2018-08-14] MEDS: SIMVASTATIN 10 MG TABLET PO SCH (21:03)
[2018-08-14] MEDS: INSULIN GLARGINE 100 UNIT/ML SUBCUT SCH (21:03)
[2018-08-15] MEDS: KETOROLAC 30 MG/1 ML VIAL IV SCH (02:24)
[2018-08-15] MEDS: oxyCODONE/ACETAMINOPHEN 5-325 MG TABLET PO PRN ×3 (04:11→13:13)
[2018-08-15] MEDS ORDERED: oxyCODONE/ACETAMINOPHEN 5-325 MG TABLET PO PRN (07:23)
[2018-08-15] MEDS: INSULIN REGULAR 100 UNIT/ML SUBCUT SCH ×2 (07:50→13:14)
[2018-08-15] MEDS: LISINOPRIL 10 MG TABLET PO SCH (08:38)
[2018-08-15] MEDS: sitaGLIPtin 100 MG TABLET PO SCH (08:39)
[2018-08-15] MEDS: cefTRIAXone 1,000 MG in SYRINGE 1 EACH IV SCH (08:56)
[2018-08-15] MEDS ORDERED: ASPIRIN EC 325 MG TABLET PO SCH (09:00)
[2018-08-15 11:52] VITALS: BP 147/67
[2018-08-15] MEDS ORDERED: DESITIN 4OZ/NYSTATIN 15 GRAM MIXTURE PASTE TOP SCH (13:30)
[2018-08-15] MEDS: MAGNESIUM HYDROXIDE SUSP 30 ML UDCUP PO PRN (15:20)
== END 2018-08-15 15:52 | DRG 481 ==
LOC: EDUNIT# → EDBD → N.ED 00:04 → N.EDINP 02:00 → N.3E 06:41
PROVIDERS: ADMIT Orthopaedic Surgery; ATTEND Orthopaedic Surgery